=== PATIENT | female | born 1955 | race Caucasian/White ===

== ENCOUNTER → 2016-05-23 | Outpatient (CLI) | payer BC ==
[~2016-05-23] MED LIST: ACARBOSE PO; ASPI81TA45 OR; CALCCHW12 OR; CLAR5CHW OR; ENAL2.5T OR; FENOFIBRATE PO; GLUC1000 OR; HYDR25TA6 OR; SIMV20TA2 OR; SIMVPOW2 PO; SYNT150T OR; VICTOZA INJECTION; VITA-113 PO
[2016-05-23 11:29] LABS: EOS # 0.3 K/mm3 (0.0-0.50); EOS % 6.3 % (0.0-3.0); LARGE UNSTAINED CELL # 0.1 K/mm3 (0.0-0.4); LARGE UNSTAINED CELL % 1.8 % (0.0-4.0); LYMPH # 1.2 K/mm3 (1.5-4.5); LYMPH % 22.9 % (24.0-44.0); MEAN CORPUSCULAR HEMOGLOBIN 29.3 pg (27.0-33.0); MEAN CORPUSCULAR HGB CONC 31.2 g/dl (32.0-36.5); MEAN CORPUSCULAR VOLUME 94.1 fl (80.0-96.0); MONO # 0.3 K/mm3 (0.0-0.8); MONO % 5.6 % (0.0-5.0); NEUTROPHILS # 3.3 K/mm3 (1.8-7.7); NEUTROPHILS % 62.4 % (36.0-66.0); PLATELET COUNT, AUTOMATED 328 k/mm3 (150-450); RED CELL DISTRIBUTION WIDTH 13.4 % (11.5-14.5); WHITE BLOOD COUNT 5.2 K/mm3 (4.0-10.0)
[2016-05-23 11:55] LABS: ALBUMIN 3.6 GM/DL (3.2-5.2); ALBUMIN/GLOBULIN RATIO 0.95 (1.00-1.93); BILIRUBIN,TOTAL 0.2 MG/DL (0.2-1.0); CALCIUM LEVEL 8.6 MG/DL (8.8-10.2); CREATININE FOR GFR 2.03 MG/DL (0.55-1.02); FREE T4 1.24 NG/DL (0.76-1.46); GLOMERULAR FILTRATION RATE 26.5 (>45); POTASSIUM SERUM 4.2 MEQ/L (3.5-5.1); TOTAL PROTEIN 7.4 GM/DL (6.4-8.2)
== END ==
LOC: M WUC 09:35
PROVIDERS: ATTEND Family Medicine
DX: E03.9 Hypothyroidism, unspecified (principal); I10 Essential (primary) hypertension; E55.9 Vitamin D deficiency, unspecified; E11.9 Type 2 diabetes mellitus without complications

== ENCOUNTER → 2016-11-22 | Outpatient (CLI) | payer BC ==
[2016-11-22 18:12] LABS: ALBUMIN 3.9 GM/DL (3.2-5.2); ANION GAP 8 MEQ/L (8-16); BLOOD UREA NITROGEN 51 MG/DL (7-18); CALCIUM LEVEL 8.3 MG/DL (8.8-10.2); CARBON DIOXIDE LEVEL 23 MEQ/L (21-32); CHLORIDE LEVEL 114 MEQ/L (98-107); CHOLESTEROL LEVEL 149 MG/DL (<200); CREATININE FOR GFR 2.48 MG/DL (0.55-1.02); FERRITIN 74 NG/ML (8-252); FREE T4 1.34 NG/DL (0.76-1.46); GLUCOSE, FASTING 156 MG/DL (80-110); MAGNESIUM LEVEL 1.5 MG/DL (1.8-2.4); PERCENT SATURATION 21.1 % (13.2-45.0); PHOSPHORUS LEVEL 4.1 MG/DL (2.5-4.9); POTASSIUM SERUM 4.4 MEQ/L (3.5-5.1); SODIUM LEVEL 145 MEQ/L (136-145); TOTAL IRON BINDING CAPACITY 460 UG/DL (250-450); TRIGLYCERIDES LEVEL 294 MG/DL (<150)
== END ==
LOC: M WUC 08:18
PROVIDERS: ATTEND Family Medicine
DX: E78.5 Hyperlipidemia, unspecified (principal); E53.8 Deficiency of other specified B group vitamins; E11.8 Type 2 diabetes mellitus with unspecified complications; E55.9 Vitamin D deficiency, unspecified; N18.3 Chronic kidney disease, stage 3 (moderate)

== ENCOUNTER → 2017-03-02 | Outpatient (CLI) | payer BC ==
[2017-03-02 19:20] LABS: BASO % 0.8 % (0.0-1.0); EOS # 0.3 10^3/uL (0.0-0.50); EOS % 5.7 % (0.0-3.0); IMMATURE GRANULOCYTE % 0.6 % (0-0); LYMPH # 1.6 10^3/uL (1.5-4.5); LYMPH % 33.1 % (24.0-44.0); MEAN CORPUSCULAR HEMOGLOBIN 30.2 pg (27.0-33.0); MEAN CORPUSCULAR HGB CONC 31.5 g/dl (32.0-36.5); MEAN CORPUSCULAR VOLUME 95.8 fl (80.0-96.0); MONO # 0.3 10^3/uL (0.0-0.8); MONO % 6.5 % (0.0-5.0); NEUTROPHILS # 2.5 10^3/uL (1.8-7.7); NEUTROPHILS % 53.3 % (36.0-66.0); PLATELET COUNT, AUTOMATED 290 10^3/uL (150-450); RED CELL DISTRIBUTION WIDTH 13.2 % (11.5-14.5); WHITE BLOOD COUNT 4.8 10^3/uL (4.0-10.0)
[2017-03-02 20:33] LABS: ALBUMIN 3.6 GM/DL (3.2-5.2); BILIRUBIN,TOTAL 0.1 MG/DL (0.2-1.0); CALCIUM LEVEL 8.8 MG/DL (8.8-10.2); CREATININE FOR GFR 2.24 MG/DL (0.55-1.02); GLOMERULAR FILTRATION RATE 23.6 (>45); MAGNESIUM LEVEL 1.5 MG/DL (1.8-2.4); POTASSIUM SERUM 3.9 MEQ/L (3.5-5.1); TOTAL PROTEIN 7.2 GM/DL (6.4-8.2)
== END ==
LOC: M WUC 14:30
PROVIDERS: ATTEND Family Medicine
DX: N18.3 Chronic kidney disease, stage 3 (moderate) (principal); E11.8 Type 2 diabetes mellitus with unspecified complications

== ENCOUNTER → 2017-06-13 | Outpatient (CLI) | payer BC ==
[2017-06-13 17:53] LABS: BASO % 0.7 % (0.0-1.0); EOS # 0.3 10^3/uL (0.0-0.50); EOS % 5.6 % (0.0-3.0); HEMATOCRIT 38.3 % (36.0-47.0); IMMATURE GRANULOCYTE % 0.5 % (0-3.0); LYMPH # 1.5 10^3/uL (1.5-4.5); MEAN CORPUSCULAR HEMOGLOBIN 30.2 pg (27.0-33.0); MEAN CORPUSCULAR HGB CONC 31.3 g/dl (32.0-36.5); MEAN CORPUSCULAR VOLUME 96.2 fl (80.0-96.0); MONO # 0.4 10^3/uL (0.0-0.8); MONO % 7.1 % (0.0-5.0); NEUTROPHILS # 3.5 10^3/uL (1.8-7.7); NEUTROPHILS % 60.1 % (36.0-66.0); PLATELET COUNT, AUTOMATED 296 10^3/uL (150-450); RED BLOOD COUNT 3.98 10^6/uL (4.00-5.40); RED CELL DISTRIBUTION WIDTH 13.4 % (11.5-14.5); WHITE BLOOD COUNT 5.9 10^3/uL (4.0-10.0)
[2017-06-13 17:59] LABS: HEMATOCRIT 38.3 % (36.0-47.0)
[2017-06-13 18:16] LABS: ESTIMATED AVERAGE GLUCOSE 217 MG/DL (60-110); HEMOGLOBIN A1c 9.2 %
[2017-06-13 18:22] LABS: ALBUMIN 3.7 GM/DL (3.2-5.2); ALBUMIN/GLOBULIN RATIO 1.03 (1.00-1.93); ALKALINE PHOSPHATASE 71 U/L (45-117); ALT/SGPT 26 U/L (12-78); ANION GAP 7 MEQ/L (8-16); AST/SGOT 29 U/L (7-37); BILIRUBIN,TOTAL 0.2 MG/DL (0.2-1.0); BLOOD UREA NITROGEN 37 MG/DL (7-18); CALCIUM LEVEL 8.9 MG/DL (8.8-10.2); CARBON DIOXIDE LEVEL 27 MEQ/L (21-32); CHLORIDE LEVEL 109 MEQ/L (98-107); CHOLESTEROL LEVEL 157 MG/DL (<200); CHOLESTEROL RISK RATIO 8.263 (<5); CPK CREATINE PHOSPHOKINASE 178 U/L (26-192); CREATININE FOR GFR 2.21 MG/DL (0.55-1.30); GLUCOSE, FASTING 157 MG/DL (70-100); HDL CHOLESTEROL 19 MG/DL (>40); NON-HDL-C 138 MG/DL; POTASSIUM SERUM 4.5 MEQ/L (3.5-5.1); SODIUM LEVEL 143 MEQ/L (136-145); TOTAL PROTEIN 7.3 GM/DL (6.4-8.2); TRIGLYCERIDES LEVEL 295 MG/DL (<150)
[2017-06-14 12:09] LABS: PTH INTACT 105.5 PG/ML (18.5-88.0)
[2017-06-14 12:11] LABS: VITAMIN B12 LEVEL 1071 PG/ML (247-911)
[2017-06-15 11:26] LABS: PRETREATED FOLATE FOR RBCFOL 11.1 NG/ML; RBC FOLATE 608.6 NG/ML (280-791)
== END ==
LOC: M WUC 09:14
DX: E53.8 Deficiency of other specified B group vitamins (principal); E78.5 Hyperlipidemia, unspecified; E03.9 Hypothyroidism, unspecified; E11.8 Type 2 diabetes mellitus with unspecified complications; E55.9 Vitamin D deficiency, unspecified
CPT/HCPCS: 82550

== ENCOUNTER → 2017-08-03 | Outpatient (CLI) | payer BC | LOC: M WHC 08:46 | DX: Z12.31 Encounter for screening mammogram for malignant neoplasm of breast (principal); M85.89 Other specified disorders of bone density and structure, multiple sites; Z78.0 Asymptomatic menopausal state | CPT/HCPCS: 77067 ==

== ENCOUNTER → 2017-10-30 | Outpatient (CLI) | payer BC ==
[2017-10-30 13:00] LABS: RETIC HEMOGLOBIN EQUIVALENT 34.7 pg (24-36); RETICULOCYTE # 77.8 10^9/L (17-77)
[2017-10-30 13:15] LABS: ESTIMATED AVERAGE GLUCOSE 194 MG/DL (60-110); HEMOGLOBIN A1c 8.4 %
[2017-10-30 13:19] LABS: ALBUMIN 3.5 GM/DL (3.2-5.2); ALBUMIN/GLOBULIN RATIO 0.95 (1.00-1.93); ALKALINE PHOSPHATASE 49 U/L (45-117); ALT/SGPT 37 U/L (12-78); ANION GAP 7 MEQ/L (8-16); AST/SGOT 43 U/L (7-37); BILIRUBIN,TOTAL 0.3 MG/DL (0.2-1.0); BLOOD UREA NITROGEN 41 MG/DL (7-18); C REACTIVE PROTEIN QUANTITATIV < 0.30 MG/DL (0.00-0.30); CALCIUM LEVEL 8.5 MG/DL (8.8-10.2); CARBON DIOXIDE LEVEL 27 MEQ/L (21-32); CHLORIDE LEVEL 111 MEQ/L (98-107); CPK CREATINE PHOSPHOKINASE 169 U/L (26-192); CREATININE FOR GFR 2.19 MG/DL (0.55-1.30); FREE T4 1.02 NG/DL (0.76-1.46); GLOMERULAR FILTRATION RATE 24.2 (>45); GLUCOSE, FASTING 129 MG/DL (70-100); PHOSPHORUS LEVEL 4.5 MG/DL (2.5-4.9); POTASSIUM SERUM 4.4 MEQ/L (3.5-5.1); SODIUM LEVEL 145 MEQ/L (136-145); TOTAL PROTEIN 7.2 GM/DL (6.4-8.2)
[2017-11-01 10:27] LABS: PTH INTACT 106.7 PG/ML (18.5-88.0)
== END ==
LOC: M WUC 09:01
DX: N11.8 Other chronic tubulo-interstitial nephritis (principal); N18.3 Chronic kidney disease, stage 3 (moderate); E03.9 Hypothyroidism, unspecified
CPT/HCPCS: 82550

== ENCOUNTER 2017-12-09 03:37 | Inpatient (IN) | payer BC ==
[2017-12-09 03:57] LABS: BEDSIDE GLUCOSE 290 MG/DL (80-115)
[2017-12-09] MEDS ORDERED: VANCOMYCIN HCL 1,000 MG, VIAL MATE ADAPTER 1 EACH in D5W 250 ML IV (04:15)
[2017-12-09] MEDS ORDERED: PIPERACILLIN/TAZOBACTAM SOD 3.375 GM in D5W MINI-BAG PLUS 50 ML IV ×2 (04:15→20:00)
[2017-12-09] MEDS: MORPHINE 2 MG/ML 1ML SYRINGE (J2270) IV (04:21)
[2017-12-09] MEDS: ONDANSETRON 4MG/2ML VIAL (J2405) IV (04:21)
[2017-12-09] MEDS: NS 1,000 ML IV ×2 (04:22→15:10)
[2017-12-09 04:23] LABS: BASO % 0.3 % (0.0-1.0); EOS % 0.1 % (0.0-3.0); HEMOGLOBIN 16.4 g/dl (12.0-15.5); IMMATURE GRANULOCYTE % 0.4 % (0-3.0); LYMPH # 1.9 10^3/uL (1.5-4.5); LYMPH % 12.4 % (24.0-44.0); MEAN CORPUSCULAR HEMOGLOBIN 30.7 pg (27.0-33.0); MEAN CORPUSCULAR HGB CONC 30.9 g/dl (32.0-36.5); MEAN CORPUSCULAR VOLUME 99.3 fl (80.0-96.0); MONO # 0.9 10^3/uL (0.0-0.8); MONO % 5.9 % (0.0-5.0); NEUTROPHILS # 12.6 10^3/uL (1.8-7.7); NEUTROPHILS % 80.9 % (36.0-66.0); PLATELET COUNT, AUTOMATED 579 10^3/uL (150-450); RED BLOOD COUNT 5.34 10^6/uL (4.00-5.40); RED CELL DISTRIBUTION WIDTH 13.6 % (11.5-14.5); WHITE BLOOD COUNT 15.6 10^3/uL (4.0-10.0)
[2017-12-09 04:27] LABS: INR 1.05; PROTHROMBIN TIME 13.8 SECONDS (12.1-14.4)
[2017-12-09 04:42] LABS: ALBUMIN 4.5 GM/DL (3.2-5.2); ALBUMIN/GLOBULIN RATIO 0.85 (1.00-1.93); ALKALINE PHOSPHATASE 75 U/L (45-117); ALT/SGPT 38 U/L (12-78); ANION GAP 23 MEQ/L (8-16); AST/SGOT 46 U/L (7-37); BILIRUBIN,DIRECT 0.2 MG/DL (0.0-0.2); BILIRUBIN,TOTAL 0.5 MG/DL (0.2-1.0); BLOOD UREA NITROGEN 46 MG/DL (7-18); CALCIUM LEVEL 10.2 MG/DL (8.8-10.2); CARBON DIOXIDE LEVEL 17 MEQ/L (21-32); CHLORIDE LEVEL 100 MEQ/L (98-107); CPK CREATINE PHOSPHOKINASE 413 U/L (26-192); CREATININE FOR GFR 5.11 MG/DL (0.55-1.30); GLOMERULAR FILTRATION RATE 9.1 (>45); GLUCOSE, FASTING 275 MG/DL (70-100); LIPASE 292 U/L (73-393); POTASSIUM SERUM 4.3 MEQ/L (3.5-5.1); SODIUM LEVEL 140 MEQ/L (136-145); TOTAL PROTEIN 9.8 GM/DL (6.4-8.2); TROPONIN I 0.33 NG/ML (< 0.10)
[2017-12-09 04:43] LABS: CK-MB VALUE MASS 13.3 NG/ML (<3.6); MB/CK RELATIVE INDEX 3.22 (< OR =4)
[2017-12-09 05:19] LABS: LACTIC ACID SEPSIS PROTOCOL 7.5 MMOL/L (0.4-2.0)
[2017-12-09 05:22] LABS: OSMOLALITY SERUM 323 MOSM/KG (280-301)
[2017-12-09 05:28] LABS: ABG BASE EXCESS -16.1 (-2.0-2.0); ABG O2 SATURATION 98.3 % (95.0-99.0); ABG PARTIAL PRESSURE CO2 25.9 mmHg (35.0-45.0); ABG PARTIAL PRESSURE O2 141.4 mmHg (75.0-100.0); ABG STANDARD HCO3 12.7 MEQ/L (22.0-26.0); ABG TOTAL CO2 10.8 MEQ/L (23.0-31.0)
[2017-12-09 05:29] LABS: ABG pH (ARTERIAL) 7.206 UNITS (7.350-7.450)
[2017-12-09] MEDS: NS 2,730 ML in APPROPRIATE DILUENT 1 EA IV (05:30)
[2017-12-09] MEDS: PIPERACILLIN/TAZOBACTAM SOD 3.375 GM in D5W MINI-BAG PLUS 50 ML IV ×2 (05:45→15:00)
[2017-12-09] MEDS: NOREPINEPHRINE BITARTRATE 8 MG in D5W 492 ML IV ×3 (06:00→19:37)
[2017-12-09 07:09] LABS: KETONE, URINE AUTO RFX NEGATIVE (NEGATIVE); LEUKOCYTE ESTERASE UR AUTO RFX 1+ (NEGATIVE); MUCUS, URINE RFX SMALL (NEGATIVE); NITRITE, URINE AUTO RFX NEGATIVE (NEGATIVE); RBC, URINE AUTO RFX TNTC /HPF (0-3); SPECIFIC GRAVITY UR AUTO RFX 1.013 (1.002-1.035); SQUAM EPITHELIAL CELL UR AURFX 0 /HPF (0-6); WBC, URINE AUTO RFX 17 /HPF (0-3); YEAST LIKE CELL URINE AUTO RFX SMALL
[2017-12-09 07:30] LABS: LACTIC ACID SEPSIS PROTOCOL 4.3 MMOL/L (0.4-2.0)
[2017-12-09] MEDS ORDERED: AMIODARONE HCL 150 MG/100 ML PREMIXED BAG (NEXTERONE) As Ordered (08:51)
[2017-12-09] MEDS: CONRAY-60 60% 50ML VIAL (Q9961) As Ordered (09:01)
[2017-12-09 09:34] LABS: AMORPHOUS SEDIMENT SMALL (NEGATIVE); APPEARANCE, URINE CLOUDY (CLEAR); BACTERIA, URINE AUTO 1+ (NEGATIVE); BILIRUBIN, URINE AUTO NEGATIVE (NEGATIVE); BLOOD, URINE BLOOD 3+ (NEGATIVE); COLOR, URINE YELLOW (YELLOW); GLUCOSE, URINE (UA) AUTO 2+ mg/dL (NEGATIVE); KETONE, URINE AUTO NEGATIVE (NEGATIVE); LEUKOCYTE ESTERASE, URINE AUTO 1+ (NEGATIVE); MUCUS, URINE SMALL (NEGATIVE); NITRITE, URINE AUTO NEGATIVE (NEGATIVE); PROTEIN, URINE AUTO 3+ mg/dL (NEGATIVE); RBC, URINE AUTO TNTC /HPF (0-3); RENAL EPITHELIAL CELLS 2 /HPF; SPECIFIC GRAVITY URINE AUTO 1.012 (1.002-1.035); SQUAMOUS EPITHELIAL CELL UR AU 5 /HPF (0-6); TRANSITIONAL EPITHELIAL AUTO 1 /HPF; UROBILINOGEN, URINE AUTO 0.2 mg/dL (0.0-2.0); WBC, URINE AUTO 116 /HPF (0-3)
[2017-12-09] MEDS ORDERED: fentaNYL 250 MCG/5 ML INJECTION (J3010) As Ordered (10:06)
[2017-12-09] MEDS ORDERED: PROPOFOL 200 MG/20 ML VIAL As Ordered (10:06)
[2017-12-09] MEDS ORDERED: ROCURONIUM BROMIDE 50 MG/5 ML VIAL As Ordered ×3 (10:06→11:09)
[2017-12-09] MEDS ORDERED: SUCCINYLCHOLINE 100 MG/5 ML SYRINGE (J0330) As Ordered (10:06)
[2017-12-09] MEDS ORDERED: EPINEPHrine 1MG/10ML SYRINGE 1.5IN As Ordered (10:06)
[2017-12-09] MEDS ORDERED: SODIUM BICARBONATE 8.4% INJ 50 ML SYRINGE As Ordered (10:06)
[2017-12-09] MEDS ORDERED: AMIODARONE HCL 360 MG/200 ML PREMIXED BAG (NEXTERONE) As Ordered (10:06)
[2017-12-09] MEDS ORDERED: LIDOCAINE 2% INJ 100 MG/5 ML SDV (FOR ANES.) As Ordered (10:06)
[2017-12-09] MEDS ORDERED: ETOMIDATE INJ 20MG/10ML VIAL As Ordered (10:06)
[2017-12-09] MEDS ORDERED: MIDAZOLAM INJ 2 MG/2 ML VIAL (J2250) As Ordered ×2 (10:06→11:45)
[2017-12-09] MEDS ORDERED: ONDANSETRON 4MG/2ML VIAL (J2405) As Ordered (10:06)
[2017-12-09] MEDS ORDERED: VASOPRESSIN INJ 20 UNITS/ML VIAL As Ordered ×2 (10:06→14:41)
[2017-12-09] MEDS ORDERED: CALCIUM CHLORIDE 10% 1 GM/10 ML SYR As Ordered (10:36)
[2017-12-09] MEDS ORDERED: PROPOFOL 1,000 MG/100 ML VIAL As Ordered (11:37)
[2017-12-09 12:11] LABS: BEDSIDE GLUCOSE 157 MG/DL (80-115)
[2017-12-09] MEDS ORDERED: fentaNYL 100 MCG/2 ML INJECTION (J3010) IV (12:15)
[2017-12-09] MEDS ORDERED: METOCLOPRAMIDE INJ 10MG/2ML VIAL (J2765) IV (12:15)
[2017-12-09] MEDS ORDERED: ONDANSETRON 4MG/2ML VIAL (J2405) IV ×2 (12:15→12:45)
[2017-12-09 12:33] LABS: ABG BASE EXCESS -15.1 (-2.0-2.0); ABG HCO3 13.2 MEQ/L (22.0-26.0); ABG O2 SATURATION 95.6 % (95.0-99.0); ABG PARTIAL PRESSURE CO2 39.7 mmHg (35.0-45.0); ABG TOTAL CO2 14.4 MEQ/L (23.0-31.0)
[2017-12-09 12:39] LABS: ABG pH (ARTERIAL) 7.139 UNITS (7.350-7.450)
[2017-12-09] MEDS ORDERED: NORCO, ANEXSIA 5/325MG TABLET (HYDROcodone/ACETAMINOPHEN) PO (12:45)
[2017-12-09] MEDS ORDERED: GLUCOSE 4 GM CHEW TABLET PO (12:45)
[2017-12-09] MEDS ORDERED: GLUCAGON FOR INJ 1 MG VIAL (J1610) SC (12:45)
[2017-12-09] MEDS: LR 1,000 ML IV ×5 (13:33→21:25)
[2017-12-09 14:12] LABS: HEMATOCRIT 39.8 % (36.0-47.0); MEAN CORPUSCULAR HEMOGLOBIN 31.7 pg (27.0-33.0); MEAN CORPUSCULAR HGB CONC 31.9 g/dl (32.0-36.5); MEAN CORPUSCULAR VOLUME 99.3 fl (80.0-96.0); RED BLOOD COUNT 4.01 10^6/uL (4.00-5.40); WHITE BLOOD COUNT 5.4 10^3/uL (4.0-10.0)
[2017-12-09 14:13] LABS: ABG BASE EXCESS -14.9 (-2.0-2.0); ABG HCO3 13.5 MEQ/L (22.0-26.0); ABG O2 SATURATION 94.7 % (95.0-99.0); ABG PARTIAL PRESSURE CO2 40.7 mmHg (35.0-45.0); ABG PARTIAL PRESSURE O2 88.8 mmHg (75.0-100.0); ABG STANDARD HCO3 13.2 MEQ/L (22.0-26.0); ABG TOTAL CO2 14.8 MEQ/L (23.0-31.0)
[2017-12-09 14:15] LABS: ABG pH (ARTERIAL) 7.139 UNITS (7.350-7.450)
[2017-12-09 14:21] LABS: POSITIVE MORPH POS FLAG
[2017-12-09 14:22] LABS: ADD MANUAL DIFFER YES; DIFF SLIDE NUMBER 242; HEMOGLOBIN 12.7 g/dl (12.0-15.5); PLATELET COUNT, AUTOMATED 359 10^3/uL (150-450)
[2017-12-09] MEDS: VASOPRESSIN INJ 20 UNITS in NS 499 ML IV ×3 (14:25→22:29)
[2017-12-09 14:41] LABS: ALBUMIN 2.3 GM/DL (3.2-5.2); ALBUMIN/GLOBULIN RATIO 0.66 (1.00-1.93); ALKALINE PHOSPHATASE 42 U/L (45-117); ALT/SGPT 70 U/L (12-78); ANION GAP 14 MEQ/L (8-16); AST/SGOT 191 U/L (7-37); BILIRUBIN,TOTAL 0.3 MG/DL (0.2-1.0); BLOOD UREA NITROGEN 49 MG/DL (7-18); CALCIUM LEVEL 6.8 MG/DL (8.8-10.2); CARBON DIOXIDE LEVEL 17 MEQ/L (21-32); CHLORIDE LEVEL 116 MEQ/L (98-107); CHOLESTEROL LEVEL 76 MG/DL (< 200); CPK CREATINE PHOSPHOKINASE 1907 U/L (26-192); CREATININE FOR GFR 4.74 MG/DL (0.55-1.30); GLOMERULAR FILTRATION RATE 9.9 (>45); GLUCOSE, FASTING 119 MG/DL (70-100); LDH LACTATE DEHYDROGENASE 436 U/L (84-246); PHOSPHORUS LEVEL 5.5 MG/DL (2.5-4.9); POTASSIUM SERUM 4.7 MEQ/L (3.5-5.1); SODIUM LEVEL 147 MEQ/L (136-145); TOTAL PROTEIN 5.8 GM/DL (6.4-8.2); TRIGLYCERIDES LEVEL 122 MG/DL (<150)
[2017-12-09 14:47] LABS: CPK CREATINE PHOSPHOKINASE 1898 U/L (26-192); MB/CK RELATIVE INDEX 6.05 (< OR =4)
[2017-12-09 14:55] LABS: ATYPICAL LYMPH 14 % (0-5); BANDS 25 % (< 11); BASOPHILS 1 % (0-4); LYMPHOCYTES 11 % (16-52); METAMYELOCYTES 3 % (0-0); MONOCYTES 4 % (0-8); NEUTROPHILS 42 % (35-75)
[2017-12-09 14:57] LABS: PLATELET ESTIMATE INCREASED (NORMAL); TOXIC VACUOLATION 1+
[2017-12-09] MEDS: AMIODARONE HCL 360 MG in APPROPRIATE DILUENT 1 EA IV ×3 (15:00→16:13)
[2017-12-09] MEDS: MIDAZOLAM INJ 2 MG/2 ML VIAL (J2250) IV ×3 (15:02→20:12)
[2017-12-09] MEDS: SENOKOT S TAB PO ×2 (15:05→20:50)
[2017-12-09] MEDS: LEVOTHYROXINE 150MCG TABLET (0.15MG) PO ×2 (15:05→22:35)
[2017-12-09] MEDS: HEPARIN SOD (PORCINE) 5000 UNITS/ML VIAL SC ×2 (15:05→21:24)
[2017-12-09] MEDS: amLODIPine 5 MG TAB PO (15:05)
[2017-12-09] MEDS: ENALAPRIL MALEATE 5 MG TAB PO (15:06)
[2017-12-09] MEDS: PANTOPRAZOLE 40MG INJ (PROTONIX) (C9113) IV (15:16)
[2017-12-09] MEDS: SODIUM BICARBONATE 8.4% INJ 50 ML SYRINGE IV (16:05)
[2017-12-09] MEDS: ASPIRIN 81 MG ENTERIC TAB PO (16:13)
[2017-12-09 17:07] LABS: ABG BASE EXCESS -11.6 (-2.0-2.0); ABG HCO3 16.2 MEQ/L (22.0-26.0); ABG O2 SATURATION 93.1 % (95.0-99.0); ABG PARTIAL PRESSURE CO2 43.8 mmHg (35.0-45.0); ABG STANDARD HCO3 15.4 MEQ/L (22.0-26.0); ABG TOTAL CO2 17.6 MEQ/L (23.0-31.0)
[2017-12-09 17:09] LABS: ABG pH (ARTERIAL) 7.187 UNITS (7.350-7.450)
[2017-12-09] MEDS: PIPERACILLIN/TAZOBACTAM SOD 2.25 GM in D5W MINI-BAG PLUS 50 ML IV ×2 (17:14→23:23)
[2017-12-09 17:23] LABS: BEDSIDE GLUCOSE 99 MG/DL (80-115)
[2017-12-09] MEDS: HumaLOG INSULIN (NovoLOG) PER UNIT SC (17:26)
[2017-12-09] MEDS ORDERED: HEPARIN 1,000 UNITS/ML 10ML VIAL (FOR RADIOLOGY& DIALYSIS ONLY) IV (18:00)
[2017-12-09] MEDS ORDERED: SODIUM CHLORIDE 0.9% INJ 10 ML SYR IV (18:00)
[2017-12-09] MEDS: SODIUM BICARBONATE 150 MEQ in STERILE WATER LITER BAG 1,000 ML IV (18:08)
[2017-12-09] MEDS: MORPHINE 4 MG/ML 1ML VIAL/SYRINGE (J2270) IV (18:22)
[2017-12-09 19:36] LABS: HEMATOCRIT 38.6 % (36.0-47.0); HEMOGLOBIN 12.1 g/dl (12.0-15.5); MEAN CORPUSCULAR HEMOGLOBIN 30.6 pg (27.0-33.0); MEAN CORPUSCULAR HGB CONC 31.3 g/dl (32.0-36.5); MEAN CORPUSCULAR VOLUME 97.7 fl (80.0-96.0); PLATELET COUNT, AUTOMATED 355 10^3/uL (150-450); RED BLOOD COUNT 3.95 10^6/uL (4.00-5.40); RED CELL DISTRIBUTION WIDTH 14.2 % (11.5-14.5)
[2017-12-09 19:37] LABS: IONIZED CALCIUM 3.6 MG/DL (4.5-5.3)
[2017-12-09 19:53] LABS: ANION GAP 13 MEQ/L (8-16); BLOOD UREA NITROGEN 51 MG/DL (7-18); CALCIUM LEVEL 6.2 MG/DL (8.8-10.2); CARBON DIOXIDE LEVEL 18 MEQ/L (21-32); CHLORIDE LEVEL 115 MEQ/L (98-107); CREATININE FOR GFR 5.25 MG/DL (0.55-1.30); GLOMERULAR FILTRATION RATE 8.8 (>45); GLUCOSE, FASTING 99 MG/DL (70-100); MAGNESIUM LEVEL 1.3 MG/DL (1.8-2.4); POTASSIUM SERUM 4.6 MEQ/L (3.5-5.1); SODIUM LEVEL 146 MEQ/L (136-145)
[2017-12-09 19:53] LABS: BEDSIDE GLUCOSE 87 MG/DL (80-115)
[2017-12-09 19:56] LABS: PROTHROMBIN TIME 16.4 SECONDS (12.1-14.4)
[2017-12-09 19:57] LABS: PARTIAL THROMBOPLASTIN TIME 32.2 SECONDS (25.4-37.6)
[2017-12-09 20:17] LABS: PHOSPHORUS LEVEL 4.2 MG/DL (2.5-4.9)
[2017-12-09] MEDS: ASPIRIN 325 MG TAB NG (20:36)
[2017-12-09] MEDS: MAG SULF 1GM/100ML (MAG RUN) 1 GM in APPROPRIATE DILUENT 1 EA IV ×2 (20:37→21:27)
[2017-12-09] MEDS: ATORVASTATIN 20 MG TAB PO (20:50)
[2017-12-09 22:30] LABS: ABG BASE EXCESS -10.7 (-2.0-2.0); ABG HCO3 15.3 MEQ/L (22.0-26.0); ABG O2 SATURATION 95.5 % (95.0-99.0); ABG PARTIAL PRESSURE CO2 34.3 mmHg (35.0-45.0); ABG PARTIAL PRESSURE O2 83.3 mmHg (75.0-100.0); ABG TOTAL CO2 16.3 MEQ/L (23.0-31.0)
[2017-12-09 22:31] LABS: ABG pH (ARTERIAL) 7.267 UNITS (7.350-7.450)
[2017-12-10] MEDS: NOREPINEPHRINE BITARTRATE 8 MG in D5W 492 ML IV ×3 (00:08→08:45)
[2017-12-10 01:11] LABS: BEDSIDE GLUCOSE 71 MG/DL (80-115)
[2017-12-10 01:14] LABS: BEDSIDE GLUCOSE 79 MG/DL (80-115)
[2017-12-10] MEDS: AMIODARONE HCL 360 MG in APPROPRIATE DILUENT 1 EA IV (02:13)
[2017-12-10] MEDS: EPINEPHrine HCL INJ 1 MG in D5W 240 ML IV ×3 (03:44→07:07)
[2017-12-10 03:59] LABS: ABG BASE EXCESS -15.3 (-2.0-2.0); ABG O2 SATURATION 92.3 % (95.0-99.0); ABG PARTIAL PRESSURE CO2 39.5 mmHg (35.0-45.0); ABG PARTIAL PRESSURE O2 73.4 mmHg (75.0-100.0); ABG STANDARD HCO3 12.7 MEQ/L (22.0-26.0); ABG TOTAL CO2 14.2 MEQ/L (23.0-31.0)
[2017-12-10 04:02] LABS: IONIZED CALCIUM 3.6 MG/DL (4.5-5.3)
[2017-12-10 04:04] LABS: ABG pH (ARTERIAL) 7.134 UNITS (7.350-7.450)
[2017-12-10 04:08] LABS: HEMATOCRIT 35.5 % (36.0-47.0); HEMOGLOBIN 10.8 g/dl (12.0-15.5); MEAN CORPUSCULAR HEMOGLOBIN 30.8 pg (27.0-33.0); MEAN CORPUSCULAR HGB CONC 30.4 g/dl (32.0-36.5); MEAN CORPUSCULAR VOLUME 101.1 fl (80.0-96.0); POSITIVE MORPH POS FLAG; RED BLOOD COUNT 3.51 10^6/uL (4.00-5.40); RED CELL DISTRIBUTION WIDTH 14.6 % (11.5-14.5); WHITE BLOOD COUNT 8.4 10^3/uL (4.0-10.0)
[2017-12-10 04:09] LABS: ADD MANUAL DIFFER YES; DIFF SLIDE NUMBER 63; PLATELET COUNT, AUTOMATED 241 10^3/uL (150-450)
[2017-12-10 04:26] LABS: BANDS 12 % (< 11); LYMPHOCYTES 24 % (16-52); METAMYELOCYTES 10 % (0-0); MONOCYTES 4 % (0-8); MYELOCYTES 1 % (0-0); NEUTROPHILS 49 % (35-75)
[2017-12-10 04:27] LABS: ALBUMIN 1.9 GM/DL (3.2-5.2); ALBUMIN/GLOBULIN RATIO 0.59 (1.00-1.93); ALKALINE PHOSPHATASE 34 U/L (45-117); ALT/SGPT 127 U/L (12-78); ANION GAP 14 MEQ/L (8-16); AST/SGOT 369 U/L (7-37); BILIRUBIN,TOTAL 0.4 MG/DL (0.2-1.0); BLOOD UREA NITROGEN 41 MG/DL (7-18); CALCIUM LEVEL 6.2 MG/DL (8.8-10.2); CARBON DIOXIDE LEVEL 16 MEQ/L (21-32); CHLORIDE LEVEL 112 MEQ/L (98-107); CHOLESTEROL LEVEL < 50 MG/DL (< 200); CREATININE FOR GFR 4.66 MG/DL (0.55-1.30); GLOMERULAR FILTRATION RATE 10.1 (>45); GLUCOSE, FASTING 69 MG/DL (70-100); LDH LACTATE DEHYDROGENASE 536 U/L (84-246); MAGNESIUM LEVEL 2.1 MG/DL (1.8-2.4); PHOSPHORUS LEVEL 5.5 MG/DL (2.5-4.9); SODIUM LEVEL 142 MEQ/L (136-145); TOTAL PROTEIN 5.1 GM/DL (6.4-8.2); TRIGLYCERIDES LEVEL 63 MG/DL (<150)
[2017-12-10 04:28] LABS: PLATELET ESTIMATE NORMAL (NORMAL)
[2017-12-10 04:29] LABS: BURR CELLS 2+
[2017-12-10 04:30] LABS: TOXIC VACUOLATION 1+
[2017-12-10 04:41] LABS: POTASSIUM SERUM 6.1 MEQ/L (3.5-5.1)
[2017-12-10 04:44] LABS: CPK CREATINE PHOSPHOKINASE 3844 U/L (26-192)
[2017-12-10] MEDS: LR 1,000 ML IV (05:12)
[2017-12-10] MEDS: HumaLOG INSULIN (NovoLOG) PER UNIT SC ×5 (05:24→23:25)
[2017-12-10] MEDS: HEPARIN SOD (PORCINE) 5000 UNITS/ML VIAL SC ×3 (05:24→21:11)
[2017-12-10] MEDS: CALCIUM GLUCONATE 1,000 MG in NS 100 ML IV ×4 (05:24→19:48)
[2017-12-10] MEDS: MIDAZOLAM INJ 2 MG/2 ML VIAL (J2250) IV (05:56)
[2017-12-10] MEDS: VASOPRESSIN INJ 20 UNITS in NS 499 ML IV (06:06)
[2017-12-10] MEDS: PIPERACILLIN/TAZOBACTAM SOD 2.25 GM in D5W MINI-BAG PLUS 50 ML IV ×3 (08:19→22:32)
[2017-12-10] MEDS: EPINEPHrine HCL INJ 4 MG in D5W 960 ML IV ×2 (08:44→20:00)
[2017-12-10] MEDS: ASPIRIN 325 MG TAB NG (08:50)
[2017-12-10] MEDS: PANTOPRAZOLE 40MG INJ (PROTONIX) (C9113) IV (08:51)
[2017-12-10] MEDS: SENOKOT S TAB PO ×2 (08:51→20:31)
[2017-12-10] MEDS ORDERED: TORSEMIDE 10 MG TABLET PO (09:00)
[2017-12-10 10:19] LABS: BEDSIDE GLUCOSE 91 MG/DL (80-115)
[2017-12-10 11:33] LABS: ABG BASE EXCESS -16.8 (-2.0-2.0); ABG HCO3 10.9 MEQ/L (22.0-26.0); ABG O2 SATURATION 94.1 % (95.0-99.0); ABG PARTIAL PRESSURE CO2 32.5 mmHg (35.0-45.0); ABG PARTIAL PRESSURE O2 88.6 mmHg (75.0-100.0); ABG STANDARD HCO3 11.6 MEQ/L (22.0-26.0); ABG TOTAL CO2 11.9 MEQ/L (23.0-31.0)
[2017-12-10 11:41] LABS: ABG pH (ARTERIAL) 7.143 UNITS (7.350-7.450)
[2017-12-10 12:00] LABS: BEDSIDE GLUCOSE 119 MG/DL (80-115)
[2017-12-10] MEDS: NOREPINEPHRINE BITARTRATE 16 MG in D5W 484 ML IV ×2 (12:40→20:31)
[2017-12-10] MEDS: VASOPRESSIN INJ 40 UNITS in NS 498 ML IV (13:24)
[2017-12-10] MEDS: D5W IV (14:54)
[2017-12-10] MEDS: EPINEPHRINE HCL IV (14:54)
[2017-12-10 16:33] LABS: IONIZED CALCIUM 3.7 MG/DL (4.5-5.3)
[2017-12-10 16:50] LABS: ANION GAP 17 MEQ/L (8-16); BLOOD UREA NITROGEN 31 MG/DL (7-18); CALCIUM LEVEL 6.5 MG/DL (8.8-10.2); CARBON DIOXIDE LEVEL 14 MEQ/L (21-32); CHLORIDE LEVEL 103 MEQ/L (98-107); CREATININE FOR GFR 4.21 MG/DL (0.55-1.30); GLOMERULAR FILTRATION RATE 11.4 (>45); GLUCOSE, FASTING 104 MG/DL (70-100); PHOSPHORUS LEVEL 8.1 MG/DL (2.5-4.9); SODIUM LEVEL 134 MEQ/L (136-145)
[2017-12-10 17:22] LABS: POTASSIUM SERUM 5.5 MEQ/L (3.5-5.1)
[2017-12-10 17:26] LABS: HEMATOCRIT 32.7 % (36.0-47.0); HEMOGLOBIN 9.8 g/dl (12.0-15.5); MEAN CORPUSCULAR HEMOGLOBIN 30.7 pg (27.0-33.0); MEAN CORPUSCULAR VOLUME 102.5 fl (80.0-96.0); PLATELET COUNT, AUTOMATED 198 10^3/uL (150-450); RED BLOOD COUNT 3.19 10^6/uL (4.00-5.40)
[2017-12-10 18:10] LABS: BEDSIDE GLUCOSE 88 MG/DL (80-115)
[2017-12-10] MEDS ORDERED: VASOPRESSIN INJ 40 UNITS in NS 498 ML IV (19:00)
[2017-12-10 23:21] LABS: BEDSIDE GLUCOSE 49 MG/DL (80-115)
[2017-12-10] MEDS: DEXTROSE 50% 50 ML SYRINGE IV (23:24)
[2017-12-10 23:26] LABS: BEDSIDE GLUCOSE 38 MG/DL (80-115)
[2017-12-10 23:53] LABS: BEDSIDE GLUCOSE 101 MG/DL (80-115)
[2017-12-11 04:00] LABS: IONIZED CALCIUM 3.7 MG/DL (4.5-5.3)
[2017-12-11 04:17] LABS: HEMATOCRIT 33.4 % (36.0-47.0); HEMOGLOBIN 10.3 g/dl (12.0-15.5); MEAN CORPUSCULAR HEMOGLOBIN 30.9 pg (27.0-33.0); MEAN CORPUSCULAR HGB CONC 30.8 g/dl (32.0-36.5); MEAN CORPUSCULAR VOLUME 100.3 fl (80.0-96.0); PLATELET COUNT, AUTOMATED 181 10^3/uL (150-450); RED BLOOD COUNT 3.33 10^6/uL (4.00-5.40); RED CELL DISTRIBUTION WIDTH 15.2 % (11.5-14.5); WHITE BLOOD COUNT 10.1 10^3/uL (4.0-10.0)
[2017-12-11 04:18] LABS: ADD MANUAL DIFFER YES; DIFF SLIDE NUMBER 38; POSITIVE MORPH POS FLAG
[2017-12-11] MEDS: EPINEPHRINE HCL IV ×3 (04:28→23:58)
[2017-12-11] MEDS: D5W IV ×3 (04:28→23:58)
[2017-12-11 05:02] LABS: BANDS 2 % (< 11); EOSINOPHILS 3 % (0-5); LYMPHOCYTES 5 % (16-52); METAMYELOCYTES 4 % (0-0); MONOCYTES 8 % (0-8); NEUTROPHILS 78 % (35-75)
[2017-12-11 05:05] LABS: ALBUMIN 1.7 GM/DL (3.2-5.2); ALBUMIN/GLOBULIN RATIO 0.47 (1.00-1.93); ALKALINE PHOSPHATASE 82 U/L (45-117); ANION GAP 15 MEQ/L (8-16); BLOOD UREA NITROGEN 25 MG/DL (7-18); CALCIUM LEVEL 6.8 MG/DL (8.8-10.2); CARBON DIOXIDE LEVEL 16 MEQ/L (21-32); CHLORIDE LEVEL 102 MEQ/L (98-107); CHOLESTEROL LEVEL 68 MG/DL (< 200); GLOMERULAR FILTRATION RATE 12.4 (>45); GLUCOSE, FASTING 55 MG/DL (70-100); MAGNESIUM LEVEL 1.9 MG/DL (1.8-2.4); PHOSPHORUS LEVEL 7.5 MG/DL (2.5-4.9); PLATELET ESTIMATE NORMAL (NORMAL); SODIUM LEVEL 133 MEQ/L (136-145); TOTAL PROTEIN 5.3 GM/DL (6.4-8.2); TRIGLYCERIDES LEVEL 221 MG/DL (<150)
[2017-12-11] MEDS: LEVOTHYROXINE 150MCG TABLET (0.15MG) PO (05:05)
[2017-12-11] MEDS: HEPARIN SOD (PORCINE) 5000 UNITS/ML VIAL SC ×3 (05:05→21:36)
[2017-12-11 05:08] LABS: BURR CELLS 2+
[2017-12-11] MEDS: NOREPINEPHRINE BITARTRATE 16 MG in D5W 484 ML IV ×3 (05:23→23:57)
[2017-12-11 05:29] LABS: POTASSIUM SERUM 5.8 MEQ/L (3.5-5.1)
[2017-12-11 05:30] LABS: ALT/SGPT 1225 U/L (12-78); AST/SGOT 3716 U/L (7-37); LDH LACTATE DEHYDROGENASE 3207 U/L (84-246)
[2017-12-11] MEDS: DEXTROSE 50% 50 ML SYRINGE IV ×6 (05:32→16:26)
[2017-12-11] MEDS: HumaLOG INSULIN (NovoLOG) PER UNIT SC ×4 (06:00→23:57)
[2017-12-11 06:01] LABS: BEDSIDE GLUCOSE 44 MG/DL (80-115)
[2017-12-11 06:05] LABS: BEDSIDE GLUCOSE 75 MG/DL (80-115)
[2017-12-11 06:07] LABS: CPK CREATINE PHOSPHOKINASE 63395 U/L (26-192)
[2017-12-11] MEDS: VASOPRESSIN INJ 40 UNITS in NS 498 ML IV ×2 (06:09→18:48)
[2017-12-11] MEDS: PIPERACILLIN/TAZOBACTAM SOD 2.25 GM in D5W MINI-BAG PLUS 50 ML IV ×3 (06:09→22:24)
[2017-12-11 06:24] LABS: ABG BASE EXCESS -11.7 (-2.0-2.0); ABG HCO3 15.7 MEQ/L (22.0-26.0); ABG O2 SATURATION 96.5 % (95.0-99.0); ABG PARTIAL PRESSURE CO2 41.3 mmHg (35.0-45.0); ABG PARTIAL PRESSURE O2 98.2 mmHg (75.0-100.0); ABG STANDARD HCO3 15.2 MEQ/L (22.0-26.0); ABG TOTAL CO2 16.9 MEQ/L (23.0-31.0)
[2017-12-11 06:27] LABS: ABG pH (ARTERIAL) 7.197 UNITS (7.350-7.450)
[2017-12-11] MEDS: SENOKOT S TAB PO ×2 (09:00→20:26)
[2017-12-11] MEDS: PANTOPRAZOLE 40MG INJ (PROTONIX) (C9113) IV (09:40)
[2017-12-11] MEDS: ASPIRIN 325 MG TAB NG (09:41)
[2017-12-11 10:47] LABS: BEDSIDE GLUCOSE 25 MG/DL (80-115)
[2017-12-11 10:51] LABS: BEDSIDE GLUCOSE 17 MG/DL (80-115)
[2017-12-11 11:24] LABS: BEDSIDE GLUCOSE 52 MG/DL (80-115)
[2017-12-11 12:19] LABS: BEDSIDE GLUCOSE 53 MG/DL (80-115)
[2017-12-11 13:02] LABS: BEDSIDE GLUCOSE 62 MG/DL (80-115)
[2017-12-11 14:21] LABS: BEDSIDE GLUCOSE 34 MG/DL (80-115)
[2017-12-11 15:00] LABS: BEDSIDE GLUCOSE 49 MG/DL (80-115)
[2017-12-11] MEDS: D10W 1,000 ML IV (15:45)
[2017-12-11 15:49] LABS: BEDSIDE GLUCOSE 50 MG/DL (80-115)
[2017-12-11 16:41] LABS: HEMOGLOBIN 10.2 g/dl (12.0-15.5); MEAN CORPUSCULAR HEMOGLOBIN 30.9 pg (27.0-33.0); MEAN CORPUSCULAR HGB CONC 30.9 g/dl (32.0-36.5); PLATELET COUNT, AUTOMATED 147 10^3/uL (150-450); RED CELL DISTRIBUTION WIDTH 15.4 % (11.5-14.5); WHITE BLOOD COUNT 10.2 10^3/uL (4.0-10.0)
[2017-12-11 16:41] LABS: IONIZED CALCIUM 3.8 MG/DL (4.5-5.3)
[2017-12-11 16:49] LABS: BEDSIDE GLUCOSE 82 MG/DL (80-115)
[2017-12-11 17:03] LABS: ANION GAP 16 MEQ/L (8-16); BLOOD UREA NITROGEN 23 MG/DL (7-18); CALCIUM LEVEL 6.6 MG/DL (8.8-10.2); CARBON DIOXIDE LEVEL 17 MEQ/L (21-32); CHLORIDE LEVEL 100 MEQ/L (98-107); CREATININE FOR GFR 3.72 MG/DL (0.55-1.30); GLOMERULAR FILTRATION RATE 13.1 (>45); GLUCOSE, FASTING 80 MG/DL (70-100); MAGNESIUM LEVEL 2.1 MG/DL (1.8-2.4); PHOSPHORUS LEVEL 7.1 MG/DL (2.5-4.9); SODIUM LEVEL 133 MEQ/L (136-145)
[2017-12-11 17:10] LABS: ABG BASE EXCESS -12.2 (-2.0-2.0); ABG HCO3 14.1 MEQ/L (22.0-26.0); ABG PARTIAL PRESSURE CO2 33.2 mmHg (35.0-45.0); ABG PARTIAL PRESSURE O2 82.3 mmHg (75.0-100.0); ABG STANDARD HCO3 14.8 MEQ/L (22.0-26.0); ABG TOTAL CO2 15.1 MEQ/L (23.0-31.0)
[2017-12-11 17:11] LABS: ABG pH (ARTERIAL) 7.245 UNITS (7.350-7.450)
[2017-12-11 18:04] LABS: BEDSIDE GLUCOSE 80 MG/DL (80-115)
[2017-12-11] MEDS ORDERED: AMIODARONE HCL 150 MG/100 ML PREMIXED BAG (NEXTERONE) As Ordered (18:35)
[2017-12-11] MEDS: CALCIUM GLUCONATE 1,000 MG in D5W MINI-BAG PLUS 100 ML IV ×2 (18:47→19:48)
[2017-12-11] MEDS: AMIODARONE HCL 150 MG in APPROPRIATE DILUENT 1 EA IV (18:47)
[2017-12-11] MEDS: AMIODARONE HCL 360 MG in APPROPRIATE DILUENT 1 EA IV (18:57)
[2017-12-11] MEDS: SODIUM BICARBONATE 150 MEQ in D5W 1,000 ML IV (19:31)
[2017-12-11 21:09] LABS: BEDSIDE GLUCOSE 80 MG/DL (80-115)
[2017-12-11 23:29] LABS: BEDSIDE GLUCOSE 75 MG/DL (80-115)
[2017-12-12 02:51] LABS: BEDSIDE GLUCOSE 48 MG/DL (80-115)
[2017-12-12] MEDS: DEXTROSE 50% 50 ML SYRINGE IV ×3 (02:51→10:53)
[2017-12-12 03:35] LABS: BEDSIDE GLUCOSE 74 MG/DL (80-115)
[2017-12-12 04:04] LABS: HEMATOCRIT 34.5 % (36.0-47.0); HEMOGLOBIN 10.7 g/dl (12.0-15.5); MEAN CORPUSCULAR HEMOGLOBIN 30.7 pg (27.0-33.0); MEAN CORPUSCULAR VOLUME 99.1 fl (80.0-96.0); PLATELET COUNT, AUTOMATED 138 10^3/uL (150-450); RED BLOOD COUNT 3.48 10^6/uL (4.00-5.40); RED CELL DISTRIBUTION WIDTH 15.9 % (11.5-14.5); WHITE BLOOD COUNT 11.6 10^3/uL (4.0-10.0)
[2017-12-12 04:06] LABS: IONIZED CALCIUM 3.7 MG/DL (4.5-5.3)
[2017-12-12 04:24] LABS: ANION GAP 14 MEQ/L (8-16); BLOOD UREA NITROGEN 20 MG/DL (7-18); CALCIUM LEVEL 7.2 MG/DL (8.8-10.2); CARBON DIOXIDE LEVEL 18 MEQ/L (21-32); CHLORIDE LEVEL 98 MEQ/L (98-107); CREATININE FOR GFR 3.36 MG/DL (0.55-1.30); GLOMERULAR FILTRATION RATE 14.8 (>45); GLUCOSE, FASTING 107 MG/DL (70-100); MAGNESIUM LEVEL 2.2 MG/DL (1.8-2.4); PHOSPHORUS LEVEL 7.6 MG/DL (2.5-4.9); SODIUM LEVEL 130 MEQ/L (136-145)
[2017-12-12 04:42] LABS: POTASSIUM SERUM 6.3 MEQ/L (3.5-5.1)
[2017-12-12] MEDS: LEVOTHYROXINE 150MCG TABLET (0.15MG) PO (05:36)
[2017-12-12] MEDS: HEPARIN SOD (PORCINE) 5000 UNITS/ML VIAL SC ×3 (05:36→22:56)
[2017-12-12 05:37] LABS: BEDSIDE GLUCOSE 54 MG/DL (80-115)
[2017-12-12] MEDS: HumaLOG INSULIN (NovoLOG) PER UNIT SC ×4 (06:00→23:29)
[2017-12-12] MEDS: PIPERACILLIN/TAZOBACTAM SOD 2.25 GM in D5W MINI-BAG PLUS 50 ML IV ×3 (06:01→22:56)
[2017-12-12 06:08] LABS: BEDSIDE GLUCOSE 165 MG/DL (80-115)
[2017-12-12 06:16] LABS: ABG BASE EXCESS -8.9 (-2.0-2.0); ABG HCO3 16.8 MEQ/L (22.0-26.0); ABG PARTIAL PRESSURE O2 116.5 mmHg (75.0-100.0); ABG STANDARD HCO3 17.3 MEQ/L (22.0-26.0); ABG TOTAL CO2 17.9 MEQ/L (23.0-31.0); ABG pH (ARTERIAL) 7.288 UNITS (7.350-7.450)
[2017-12-12] MEDS: NOREPINEPHRINE BITARTRATE 16 MG in D5W 484 ML IV ×2 (08:03→20:16)
[2017-12-12 08:55] LABS: ALBUMIN 1.5 GM/DL (3.2-5.2); ALBUMIN/GLOBULIN RATIO 0.35 (1.00-1.93); ALKALINE PHOSPHATASE 178 U/L (45-117); ALT/SGPT 1500 U/L (12-78); BILIRUBIN,TOTAL 1.8 MG/DL (0.2-1.0); CHOLESTEROL LEVEL 83 MG/DL (< 200); LDH LACTATE DEHYDROGENASE 3222 U/L (84-246); TOTAL PROTEIN 5.8 GM/DL (6.4-8.2); TRIGLYCERIDES LEVEL 534 MG/DL (<150)
[2017-12-12] MEDS: SENOKOT S TAB PO ×2 (09:00→20:16)
[2017-12-12 09:18] LABS: AST/SGOT 3330 U/L (7-37)
[2017-12-12] MEDS: PANTOPRAZOLE 40MG INJ (PROTONIX) (C9113) IV (09:20)
[2017-12-12] MEDS: ASPIRIN 325 MG TAB NG (09:20)
[2017-12-12] MEDS: CALCIUM GLUCONATE 1,000 MG in D5W MINI-BAG PLUS 100 ML IV ×4 (09:21→19:00)
[2017-12-12 09:27] LABS: CPK CREATINE PHOSPHOKINASE 92000 U/L (26-192)
[2017-12-12 09:56] LABS: DIFF SLIDE NUMBER 40; POS COUNT POS FLAG; POSITIVE MORPH POS FLAG
[2017-12-12] MEDS: VASOPRESSIN INJ 40 UNITS in NS 498 ML IV (10:01)
[2017-12-12] MEDS: SODIUM BICARBONATE 150 MEQ in D5W 1,000 ML IV (10:02)
[2017-12-12 10:31] LABS: BEDSIDE GLUCOSE 54 MG/DL (80-115)
[2017-12-12 11:06] LABS: BANDS 5 % (< 11); BASOPHILS 1 % (0-4); EOSINOPHILS 3 % (0-5); LYMPHOCYTES 6 % (16-52); METAMYELOCYTES 3 % (0-0); MONOCYTES 12 % (0-8); MYELOCYTES 1 % (0-0); NEUTROPHILS 69 % (35-75); PLATELET ESTIMATE NORMAL (NORMAL)
[2017-12-12 11:07] LABS: BURR CELLS 2+; PLATELET CLUMPS SMALL AMT; TOXIC GRANULATION 3+
[2017-12-12 12:14] LABS: BEDSIDE GLUCOSE 90 MG/DL (80-115)
[2017-12-12 16:03] LABS: HEMOGLOBIN 10.7 g/dl (12.0-15.5); MEAN CORPUSCULAR HEMOGLOBIN 30.7 pg (27.0-33.0); MEAN CORPUSCULAR HGB CONC 31.5 g/dl (32.0-36.5); MEAN CORPUSCULAR VOLUME 97.7 fl (80.0-96.0); PLATELET COUNT, AUTOMATED 120 10^3/uL (150-450); RED BLOOD COUNT 3.48 10^6/uL (4.00-5.40); RED CELL DISTRIBUTION WIDTH 15.8 % (11.5-14.5); WHITE BLOOD COUNT 10.9 10^3/uL (4.0-10.0)
[2017-12-12 16:30] LABS: ANION GAP 15 MEQ/L (8-16); BLOOD UREA NITROGEN 18 MG/DL (7-18); CALCIUM LEVEL 7.3 MG/DL (8.8-10.2); CARBON DIOXIDE LEVEL 20 MEQ/L (21-32); CHLORIDE LEVEL 98 MEQ/L (98-107); CREATININE FOR GFR 2.94 MG/DL (0.55-1.30); GLOMERULAR FILTRATION RATE 17.2 (>45); GLUCOSE, FASTING 81 MG/DL (70-100); MAGNESIUM LEVEL 2.1 MG/DL (1.8-2.4); PHOSPHORUS LEVEL 6.9 MG/DL (2.5-4.9); SODIUM LEVEL 133 MEQ/L (136-145)
[2017-12-12 16:31] LABS: POTASSIUM SERUM 5.6 MEQ/L (3.5-5.1)
[2017-12-12] MEDS: EPINEPHRINE HCL IV (16:40)
[2017-12-12] MEDS: D5W IV (16:40)
[2017-12-12 17:31] LABS: BEDSIDE GLUCOSE 15 MG/DL (80-115)
[2017-12-12 17:34] LABS: BEDSIDE GLUCOSE 84 MG/DL (80-115)
[2017-12-12 23:22] LABS: BEDSIDE GLUCOSE 95 MG/DL (80-115)
[2017-12-13] MEDS: SODIUM BICARBONATE 150 MEQ in D5W 1,000 ML IV (00:38)
[2017-12-13] MEDS: VASOPRESSIN INJ 40 UNITS in NS 498 ML IV ×2 (00:38→16:41)
[2017-12-13] MEDS ORDERED: AMIODARONE HCL 150 MG/100 ML PREMIXED BAG (NEXTERONE) As Ordered (02:00)
[2017-12-13] MEDS: AMIODARONE HCL 150 MG in APPROPRIATE DILUENT 1 EA IV (02:00)
[2017-12-13 04:04] LABS: IONIZED CALCIUM 3.8 MG/DL (4.5-5.3)
[2017-12-13 04:07] LABS: HEMATOCRIT 33.3 % (36.0-47.0); HEMOGLOBIN 10.4 g/dl (12.0-15.5); MEAN CORPUSCULAR HEMOGLOBIN 30.2 pg (27.0-33.0); MEAN CORPUSCULAR HGB CONC 31.2 g/dl (32.0-36.5); MEAN CORPUSCULAR VOLUME 96.8 fl (80.0-96.0); PLATELET COUNT, AUTOMATED 113 10^3/uL (150-450); RED BLOOD COUNT 3.44 10^6/uL (4.00-5.40); WHITE BLOOD COUNT 12.6 10^3/uL (4.0-10.0)
[2017-12-13 04:08] LABS: POS COUNT POS FLAG; POSITIVE MORPH POS FLAG
[2017-12-13 04:09] LABS: ADD MANUAL DIFFER YES; DIFF SLIDE NUMBER 19
[2017-12-13 04:56] LABS: BANDS 2 % (< 11); EOSINOPHILS 1 % (0-5); LYMPHOCYTES 9 % (16-52); METAMYELOCYTES 1 % (0-0); MONOCYTES 6 % (0-8); NEUTROPHILS 81 % (35-75)
[2017-12-13 04:57] LABS: ALBUMIN 1.4 GM/DL (3.2-5.2); ALKALINE PHOSPHATASE 211 U/L (45-117); ALT/SGPT 1170 U/L (12-78); ANION GAP 13 MEQ/L (8-16); ANISOCYTOSIS 1+; BILIRUBIN,TOTAL 2.5 MG/DL (0.2-1.0); BLOOD UREA NITROGEN 18 MG/DL (7-18); CALCIUM LEVEL 7.4 MG/DL (8.8-10.2); CARBON DIOXIDE LEVEL 23 MEQ/L (21-32); CHLORIDE LEVEL 96 MEQ/L (98-107); CHOLESTEROL LEVEL 109 MG/DL (< 200); CREATININE FOR GFR 2.82 MG/DL (0.55-1.30); GLOMERULAR FILTRATION RATE 18.1 (>45); GLUCOSE, FASTING 80 MG/DL (70-100); LDH LACTATE DEHYDROGENASE 2239 U/L (84-246); PHOSPHORUS LEVEL 5.5 MG/DL (2.5-4.9); PLATELET ESTIMATE DECREASED (NORMAL); SODIUM LEVEL 132 MEQ/L (136-145); TOTAL PROTEIN 4.9 GM/DL (6.4-8.2); TOXIC GRANULATION 2+; TRIGLYCERIDES LEVEL 588 MG/DL (<150)
[2017-12-13 05:21] LABS: AST/SGOT 2443 U/L (7-37)
[2017-12-13 05:32] LABS: POTASSIUM SERUM 5.4 MEQ/L (3.5-5.1)
[2017-12-13] MEDS: HumaLOG INSULIN (NovoLOG) PER UNIT SC ×3 (05:37→17:33)
[2017-12-13 05:48] LABS: CPK CREATINE PHOSPHOKINASE 97937 U/L (26-192)
[2017-12-13] MEDS: PIPERACILLIN/TAZOBACTAM SOD 2.25 GM in D5W MINI-BAG PLUS 50 ML IV ×3 (06:07→21:54)
[2017-12-13] MEDS: HEPARIN SOD (PORCINE) 5000 UNITS/ML VIAL SC ×3 (06:07→21:53)
[2017-12-13] MEDS: LEVOTHYROXINE 150MCG TABLET (0.15MG) PO (06:08)
[2017-12-13 06:35] LABS: ABG pH (ARTERIAL) 7.327 UNITS (7.350-7.450)
[2017-12-13 06:36] LABS: ABG BASE EXCESS -6.6 (-2.0-2.0); ABG HCO3 18.7 MEQ/L (22.0-26.0); ABG O2 SATURATION 88.6 % (95.0-99.0); ABG PARTIAL PRESSURE CO2 36.5 mmHg (35.0-45.0); ABG PARTIAL PRESSURE O2 62.9 mmHg (75.0-100.0); ABG STANDARD HCO3 18.9 MEQ/L (22.0-26.0); ABG TOTAL CO2 19.8 MEQ/L (23.0-31.0)
[2017-12-13] MEDS: SENOKOT S TAB PO ×2 (08:24→21:00)
[2017-12-13] MEDS: ASPIRIN 325 MG TAB NG (08:32)
[2017-12-13] MEDS: PANTOPRAZOLE 40MG INJ (PROTONIX) (C9113) IV (08:32)
[2017-12-13] MEDS: NOREPINEPHRINE BITARTRATE 16 MG in D5W 484 ML IV ×4 (08:32→16:43)
[2017-12-13] MEDS: CALCIUM GLUCONATE 1,000 MG in D5W MINI-BAG PLUS 100 ML IV ×2 (10:23→11:06)
[2017-12-13 12:08] LABS: BEDSIDE GLUCOSE 115 MG/DL (80-115)
[2017-12-13] MEDS ORDERED: DIGOXIN INJ 0.5 MG/2 ML AMP (J1160) As Ordered (14:35)
[2017-12-13] MEDS: DIGOXIN INJ 0.5 MG/2 ML AMP (J1160) IV (14:39)
[2017-12-13 15:39] LABS: HEMATOCRIT 33.1 % (36.0-47.0); HEMOGLOBIN 10.4 g/dl (12.0-15.5); MEAN CORPUSCULAR HEMOGLOBIN 30.7 pg (27.0-33.0); MEAN CORPUSCULAR HGB CONC 31.4 g/dl (32.0-36.5); MEAN CORPUSCULAR VOLUME 97.6 fl (80.0-96.0); PLATELET COUNT, AUTOMATED 102 10^3/uL (150-450); RED BLOOD COUNT 3.39 10^6/uL (4.00-5.40)
[2017-12-13] MEDS: SODIUM ACETATE IV (15:39)
[2017-12-13] MEDS: SODIUM CHLORIDE IV (15:39)
[2017-12-13] MEDS: [UNRECOGNIZED DRUG - OTHER] IV (15:39)
[2017-12-13] MEDS: FAT EMULSION IV 20% 500 ML IV (15:39)
[2017-12-13 15:45] LABS: IONIZED CALCIUM 3.7 MG/DL (4.5-5.3)
[2017-12-13 15:59] LABS: ANION GAP 14 MEQ/L (8-16); BLOOD UREA NITROGEN 18 MG/DL (7-18); CALCIUM LEVEL 7.7 MG/DL (8.8-10.2); CARBON DIOXIDE LEVEL 21 MEQ/L (21-32); CHLORIDE LEVEL 98 MEQ/L (98-107); CREATININE FOR GFR 2.59 MG/DL (0.55-1.30); GLOMERULAR FILTRATION RATE 19.9 (>45); GLUCOSE, FASTING 111 MG/DL (70-100); MAGNESIUM LEVEL 2.1 MG/DL (1.8-2.4); PHOSPHORUS LEVEL 5.5 MG/DL (2.5-4.9); SODIUM LEVEL 133 MEQ/L (136-145)
[2017-12-13 16:03] LABS: POTASSIUM SERUM 5.3 MEQ/L (3.5-5.1)
[2017-12-13 23:57] LABS: BEDSIDE GLUCOSE 143 MG/DL (80-115)
[2017-12-13 23:57] LABS: BEDSIDE GLUCOSE 177 MG/DL (80-115)
[2017-12-14] MEDS: HumaLOG INSULIN (NovoLOG) PER UNIT SC ×5 (00:11→23:52)
[2017-12-14] MEDS: NOREPINEPHRINE BITARTRATE 16 MG in D5W 484 ML IV ×2 (02:32→13:53)
[2017-12-14 04:22] LABS: HEMATOCRIT 30.6 % (36.0-47.0); HEMOGLOBIN 9.7 g/dl (12.0-15.5); MEAN CORPUSCULAR HEMOGLOBIN 31.4 pg (27.0-33.0); MEAN CORPUSCULAR HGB CONC 31.7 g/dl (32.0-36.5); RED BLOOD COUNT 3.09 10^6/uL (4.00-5.40); RED CELL DISTRIBUTION WIDTH 16.4 % (11.5-14.5); WHITE BLOOD COUNT 15.7 10^3/uL (4.0-10.0)
[2017-12-14 04:28] LABS: PLATELET COUNT, AUTOMATED 90 10^3/uL (150-450); POS COUNT POS FLAG; POSITIVE MORPH POS FLAG
[2017-12-14 04:39] LABS: ADD MANUAL DIFFER YES; DIFF SLIDE NUMBER 31
[2017-12-14 04:52] LABS: BANDS 1 % (< 11); EOSINOPHILS 5 % (0-5); HYPOCHROMASIA 1+; LYMPHOCYTES 8 % (16-52); METAMYELOCYTES 4 % (0-0); MONOCYTES 8 % (0-8); MYELOCYTES 1 % (0-0); NEUTROPHILS 73 % (35-75); PLATELET ESTIMATE DECREASED (NORMAL); POLYCHROMASIA 1+
[2017-12-14 04:53] LABS: ANISOCYTOSIS 1+; TOXIC GRANULATION 1+; TOXIC VACUOLATION 1+
[2017-12-14 05:09] LABS: ALBUMIN 1.8 GM/DL (3.2-5.2); ALBUMIN/GLOBULIN RATIO 0.55 (1.00-1.93); ALKALINE PHOSPHATASE 209 U/L (45-117); ALT/SGPT 785 U/L (12-78); ANION GAP 14 MEQ/L (8-16); AST/SGOT 1932 U/L (7-37); BILIRUBIN,TOTAL 2.6 MG/DL (0.2-1.0); BLOOD UREA NITROGEN 22 MG/DL (7-18); CALCIUM LEVEL 7.1 MG/DL (8.8-10.2); CARBON DIOXIDE LEVEL 21 MEQ/L (21-32); CHLORIDE LEVEL 100 MEQ/L (98-107); CHOLESTEROL LEVEL 96 MG/DL (< 200); GLOMERULAR FILTRATION RATE 20.8 (>45); GLUCOSE, FASTING 204 MG/DL (70-100); LDH LACTATE DEHYDROGENASE 2089 U/L (84-246); MAGNESIUM LEVEL 2.2 MG/DL (1.8-2.4); PHOSPHORUS LEVEL 2.9 MG/DL (2.5-4.9); POTASSIUM SERUM 4.4 MEQ/L (3.5-5.1); SODIUM LEVEL 135 MEQ/L (136-145); TOTAL PROTEIN 5.1 GM/DL (6.4-8.2); TRIGLYCERIDES LEVEL 699 MG/DL (<150)
[2017-12-14] MEDS: CALCIUM GLUCONATE 1,000 MG in NS 100 ML IV ×2 (05:14→06:00)
[2017-12-14] MEDS: HEPARIN SOD (PORCINE) 5000 UNITS/ML VIAL SC ×3 (05:29→19:53)
[2017-12-14 05:44] LABS: CPK CREATINE PHOSPHOKINASE 88359 U/L (26-192)
[2017-12-14 05:45] LABS: ABG BASE EXCESS -3.9 (-2.0-2.0); ABG HCO3 20.6 MEQ/L (22.0-26.0); ABG O2 SATURATION 94.8 % (95.0-99.0); ABG PARTIAL PRESSURE CO2 35.1 mmHg (35.0-45.0); ABG PARTIAL PRESSURE O2 76.9 mmHg (75.0-100.0); ABG STANDARD HCO3 21.2 MEQ/L (22.0-26.0); ABG TOTAL CO2 21.7 MEQ/L (23.0-31.0); ABG pH (ARTERIAL) 7.386 UNITS (7.350-7.450)
[2017-12-14 05:57] LABS: IMMATURE PLATELET FRACTION % 16.3 % (0.0-9.6)
[2017-12-14] MEDS: DIGOXIN INJ 0.5 MG/2 ML AMP (J1160) IV (05:59)
[2017-12-14] MEDS: LEVOTHYROXINE 150MCG TABLET (0.15MG) PO (06:00)
[2017-12-14] MEDS: PIPERACILLIN/TAZOBACTAM SOD 2.25 GM in D5W MINI-BAG PLUS 50 ML IV ×3 (06:00→23:49)
[2017-12-14] MEDS: ASPIRIN 325 MG TAB NG (08:53)
[2017-12-14] MEDS: PANTOPRAZOLE 40MG INJ (PROTONIX) (C9113) IV (08:53)
[2017-12-14] MEDS: VASOPRESSIN INJ 40 UNITS in NS 498 ML IV (08:58)
[2017-12-14] MEDS: SENOKOT S TAB PO ×2 (09:00→19:53)
[2017-12-14] MEDS ORDERED: HEPARIN 1,000 UNITS/ML 10ML VIAL (FOR RADIOLOGY& DIALYSIS ONLY) IV (12:00)
[2017-12-14] MEDS ORDERED: SODIUM CHLORIDE 0.9% INJ 10 ML SYR IV (12:00)
[2017-12-14 16:35] LABS: HEMATOCRIT 28.8 % (36.0-47.0); HEMOGLOBIN 9.2 g/dl (12.0-15.5); MEAN CORPUSCULAR HEMOGLOBIN 31.2 pg (27.0-33.0); MEAN CORPUSCULAR HGB CONC 31.9 g/dl (32.0-36.5); MEAN CORPUSCULAR VOLUME 97.6 fl (80.0-96.0); RED BLOOD COUNT 2.95 10^6/uL (4.00-5.40); WHITE BLOOD COUNT 20.2 10^3/uL (4.0-10.0)
[2017-12-14 16:35] LABS: IONIZED CALCIUM 4.2 MG/DL (4.5-5.3)
[2017-12-14 16:40] LABS: PLATELET COUNT, AUTOMATED 78 10^3/uL (150-450)
[2017-12-14 17:06] LABS: ANION GAP 14 MEQ/L (8-16); BLOOD UREA NITROGEN 26 MG/DL (7-18); CALCIUM LEVEL 7.4 MG/DL (8.8-10.2); CARBON DIOXIDE LEVEL 19 MEQ/L (21-32); CHLORIDE LEVEL 101 MEQ/L (98-107); GLOMERULAR FILTRATION RATE 19.9 (>45); GLUCOSE, FASTING 252 MG/DL (70-100); MAGNESIUM LEVEL 2.3 MG/DL (1.8-2.4); PHOSPHORUS LEVEL 1.8 MG/DL (2.5-4.9); POTASSIUM SERUM 4.1 MEQ/L (3.5-5.1); SODIUM LEVEL 134 MEQ/L (136-145)
[2017-12-14] MEDS: [UNRECOGNIZED DRUG - OTHER] IV (18:28)
[2017-12-14] MEDS: SODIUM ACETATE IV (18:28)
[2017-12-14] MEDS: SODIUM CHLORIDE IV (18:28)
[2017-12-14] MEDS: FAT EMULSION IV 20% 500 ML IV (18:28)
[2017-12-14] MEDS: SODIUM PHOSPHATE INJ 15 MMOL in D5W 250 ML IV (18:43)
[2017-12-14] MEDS: CALCIUM GLUCONATE 1,000 MG in D5W MINI-BAG PLUS 100 ML IV ×2 (18:51→19:34)
[2017-12-15] MEDS: VASOPRESSIN INJ 40 UNITS in NS 498 ML IV ×2 (00:10→18:46)
[2017-12-15] MEDS: NOREPINEPHRINE BITARTRATE 16 MG in D5W 484 ML IV ×2 (01:44→16:02)
[2017-12-15 02:09] LABS: TYPE AND SCREEN 1 1
[2017-12-15] MEDS: HEPARIN SOD (PORCINE) 5000 UNITS/ML VIAL SC (02:30)
[2017-12-15 03:17] LABS: BEDSIDE GLUCOSE 296 MG/DL (80-115)
[2017-12-15 04:04] LABS: HEMATOCRIT 28.9 % (36.0-47.0); MEAN CORPUSCULAR HEMOGLOBIN 31.4 pg (27.0-33.0); MEAN CORPUSCULAR HGB CONC 31.1 g/dl (32.0-36.5); MEAN CORPUSCULAR VOLUME 100.7 fl (80.0-96.0); RED BLOOD COUNT 2.87 10^6/uL (4.00-5.40); RED CELL DISTRIBUTION WIDTH 17.2 % (11.5-14.5)
[2017-12-15 04:09] LABS: IONIZED CALCIUM 4.4 MG/DL (4.5-5.3)
[2017-12-15 04:28] LABS: ANION GAP 15 MEQ/L (8-16); BLOOD UREA NITROGEN 28 MG/DL (7-18); CALCIUM LEVEL 7.7 MG/DL (8.8-10.2); CARBON DIOXIDE LEVEL 20 MEQ/L (21-32); CHLORIDE LEVEL 101 MEQ/L (98-107); CREATININE FOR GFR 2.43 MG/DL (0.55-1.30); GLOMERULAR FILTRATION RATE 21.5 (>45); GLUCOSE, FASTING 289 MG/DL (70-100); MAGNESIUM LEVEL 2.2 MG/DL (1.8-2.4); PHOSPHORUS LEVEL 2.1 MG/DL (2.5-4.9); POTASSIUM SERUM 3.8 MEQ/L (3.5-5.1); SODIUM LEVEL 136 MEQ/L (136-145)
[2017-12-15 04:37] LABS: PLATELET COUNT, AUTOMATED 78 10^3/uL (150-450)
[2017-12-15] MEDS: KCL 20MEQ IN 100ML SWI (KRUN) 20 MEQ in APPROPRIATE DILUENT 1 EA IV ×2 (05:13→17:44)
[2017-12-15] MEDS: CALCIUM GLUCONATE 1,000 MG in NS 100 ML IV (05:14)
[2017-12-15] MEDS ORDERED: SODIUM PHOSPHATE INJ 15 MMOL in D5W 250 ML IV (05:30)
[2017-12-15] MEDS: LEVOTHYROXINE 150MCG TABLET (0.15MG) PO (05:37)
[2017-12-15] MEDS: HumaLOG INSULIN (NovoLOG) PER UNIT SC ×3 (05:38→17:44)
[2017-12-15] MEDS: PIPERACILLIN/TAZOBACTAM SOD 2.25 GM in D5W MINI-BAG PLUS 50 ML IV ×3 (06:27→23:09)
[2017-12-15] MEDS: SODIUM PHOSPHATE INJ 15 MMOL in D5W 250 ML IV (08:55)
[2017-12-15] MEDS: ASPIRIN 325 MG TAB NG (09:46)
[2017-12-15] MEDS: SENOKOT S TAB PO ×2 (09:46→21:29)
[2017-12-15] MEDS: PANTOPRAZOLE 40MG INJ (PROTONIX) (C9113) IV (09:47)
[2017-12-15 12:23] LABS: BEDSIDE GLUCOSE 242 MG/DL (80-115)
[2017-12-15 12:23] LABS: BEDSIDE GLUCOSE 251 MG/DL (80-115)
[2017-12-15 12:23] LABS: BEDSIDE GLUCOSE 347 MG/DL (80-115)
[2017-12-15] MEDS ORDERED: LIDOCAINE 1% MDV 20ML VIAL As Ordered (13:00)
[2017-12-15 15:50] LABS: HEMATOCRIT 28.9 % (36.0-47.0); HEMOGLOBIN 9.1 g/dl (12.0-15.5); MEAN CORPUSCULAR HEMOGLOBIN 31.3 pg (27.0-33.0); MEAN CORPUSCULAR HGB CONC 31.5 g/dl (32.0-36.5); MEAN CORPUSCULAR VOLUME 99.3 fl (80.0-96.0); RED BLOOD COUNT 2.91 10^6/uL (4.00-5.40); RED CELL DISTRIBUTION WIDTH 17.4 % (11.5-14.5); WHITE BLOOD COUNT 24.3 10^3/uL (4.0-10.0)
[2017-12-15 15:51] LABS: PLATELET COUNT, AUTOMATED 77 10^3/uL (150-450)
[2017-12-15 15:52] LABS: IMMATURE PLATELET FRACTION % 22.2 % (0.0-9.6)
[2017-12-15 16:17] LABS: ANION GAP 16 MEQ/L (8-16); BLOOD UREA NITROGEN 29 MG/DL (7-18); CALCIUM LEVEL 8.3 MG/DL (8.8-10.2); CARBON DIOXIDE LEVEL 18 MEQ/L (21-32); CHLORIDE LEVEL 100 MEQ/L (98-107); CREATININE FOR GFR 2.37 MG/DL (0.55-1.30); GLOMERULAR FILTRATION RATE 22.1 (>45); GLUCOSE, FASTING 342 MG/DL (70-100); MAGNESIUM LEVEL 2.4 MG/DL (1.8-2.4); POTASSIUM SERUM 3.7 MEQ/L (3.5-5.1); SODIUM LEVEL 134 MEQ/L (136-145)
[2017-12-15 17:13] LABS: IONIZED CALCIUM 4.5 MG/DL (4.5-5.3)
[2017-12-15] MEDS ORDERED: SODIUM CHLORIDE 0.9% INJ 10 ML SYR IV (17:30)
[2017-12-15] MEDS: CALCIUM GLUCONATE 1,000 MG in NS MINI-BAG PLUS 100 ML IV (17:43)
[2017-12-15] MEDS: FAT EMULSION IV 20% 500 ML IV (17:46)
[2017-12-15] MEDS: SODIUM CHLORIDE 0.9% INJ 10 ML SYR IV (17:46)
[2017-12-15] MEDS ORDERED: POTASSIUM PHOSPHATE INJ 30 MMOL in D5W 250 ML IV (18:00)
[2017-12-15] MEDS: [UNRECOGNIZED DRUG - OTHER] IV (18:45)
[2017-12-15] MEDS: SODIUM CHLORIDE IV (18:45)
[2017-12-15] MEDS: SODIUM ACETATE IV (18:45)
[2017-12-15] MEDS: POTASSIUM PHOSPHATE INJ 30 MMOL in D5W 250 ML IV (21:29)
[2017-12-16] MEDS: HumaLOG INSULIN (NovoLOG) PER UNIT SC ×4 (00:23→17:39)
[2017-12-16 00:28] LABS: BEDSIDE GLUCOSE 371 MG/DL (80-115)
[2017-12-16 04:38] LABS: IONIZED CALCIUM 4.5 MG/DL (4.5-5.3)
[2017-12-16 04:56] LABS: HEMATOCRIT 29.2 % (36.0-47.0); HEMOGLOBIN 9.1 g/dl (12.0-15.5); MEAN CORPUSCULAR HEMOGLOBIN 31.6 pg (27.0-33.0); MEAN CORPUSCULAR HGB CONC 31.2 g/dl (32.0-36.5); MEAN CORPUSCULAR VOLUME 101.4 fl (80.0-96.0); RED BLOOD COUNT 2.88 10^6/uL (4.00-5.40); RED CELL DISTRIBUTION WIDTH 17.8 % (11.5-14.5); WHITE BLOOD COUNT 24.1 10^3/uL (4.0-10.0)
[2017-12-16 04:58] LABS: PLATELET COUNT, AUTOMATED 90 10^3/uL (150-450)
[2017-12-16 05:05] LABS: ANION GAP 16 MEQ/L (8-16); BLOOD UREA NITROGEN 34 MG/DL (7-18); CALCIUM LEVEL 7.8 MG/DL (8.8-10.2); CARBON DIOXIDE LEVEL 19 MEQ/L (21-32); CHLORIDE LEVEL 101 MEQ/L (98-107); CREATININE FOR GFR 2.32 MG/DL (0.55-1.30); GLOMERULAR FILTRATION RATE 22.6 (>45); GLUCOSE, FASTING 383 MG/DL (70-100); MAGNESIUM LEVEL 2.2 MG/DL (1.8-2.4); PHOSPHORUS LEVEL 3.3 MG/DL (2.5-4.9); POTASSIUM SERUM 4.7 MEQ/L (3.5-5.1); SODIUM LEVEL 136 MEQ/L (136-145)
[2017-12-16 05:09] LABS: ALBUMIN 1.7 GM/DL (3.2-5.2); ALBUMIN/GLOBULIN RATIO 0.45 (1.00-1.93); ALKALINE PHOSPHATASE 189 U/L (45-117); ALT/SGPT 393 U/L (12-78); AST/SGOT 785 U/L (7-37); BILIRUBIN,DIRECT 2.3 MG/DL (0.0-0.2); BILIRUBIN,TOTAL 2.8 MG/DL (0.2-1.0); TOTAL PROTEIN 5.5 GM/DL (6.4-8.2)
[2017-12-16] MEDS: SODIUM CHLORIDE 0.9% INJ 10 ML SYR IV ×2 (05:46→18:09)
[2017-12-16] MEDS: LEVOTHYROXINE 150MCG TABLET (0.15MG) PO (05:53)
[2017-12-16 05:55] LABS: BEDSIDE GLUCOSE 386 MG/DL (80-115)
[2017-12-16 05:57] LABS: ABG BASE EXCESS -5.9 (-2.0-2.0); ABG HCO3 20.7 MEQ/L (22.0-26.0); ABG PARTIAL PRESSURE CO2 45.7 mmHg (35.0-45.0); ABG PARTIAL PRESSURE O2 78.1 mmHg (75.0-100.0); ABG STANDARD HCO3 19.5 MEQ/L (22.0-26.0); ABG TOTAL CO2 22.1 MEQ/L (23.0-31.0); ABG pH (ARTERIAL) 7.273 UNITS (7.350-7.450)
[2017-12-16] MEDS: PIPERACILLIN/TAZOBACTAM SOD 2.25 GM in D5W MINI-BAG PLUS 50 ML IV ×3 (06:20→22:53)
[2017-12-16] MEDS: CALCIUM GLUCONATE 1,000 MG in D5W MINI-BAG PLUS 100 ML IV ×2 (06:44→18:28)
[2017-12-16] MEDS: SENOKOT S TAB PO ×2 (09:00→20:54)
[2017-12-16] MEDS: VASOPRESSIN INJ 40 UNITS in NS 498 ML IV ×2 (09:33→16:30)
[2017-12-16] MEDS: PANTOPRAZOLE 40MG INJ (PROTONIX) (C9113) IV (09:34)
[2017-12-16] MEDS: ASPIRIN 325 MG TAB NG (09:34)
[2017-12-16] MEDS: NOREPINEPHRINE BITARTRATE 16 MG in D5W 484 ML IV ×2 (10:25→16:30)
[2017-12-16 10:32] LABS: ABG BASE EXCESS -6.4 (-2.0-2.0); ABG HCO3 20.1 MEQ/L (22.0-26.0); ABG O2 SATURATION 93.7 % (95.0-99.0); ABG PARTIAL PRESSURE CO2 44.3 mmHg (35.0-45.0); ABG PARTIAL PRESSURE O2 72.4 mmHg (75.0-100.0); ABG STANDARD HCO3 19.2 MEQ/L (22.0-26.0); ABG TOTAL CO2 21.5 MEQ/L (23.0-31.0); ABG pH (ARTERIAL) 7.275 UNITS (7.350-7.450)
[2017-12-16] MEDS ORDERED: HEPARIN 1,000 UNITS/ML 10ML VIAL (FOR RADIOLOGY& DIALYSIS ONLY) IV (11:00)
[2017-12-16] MEDS ORDERED: SODIUM CHLORIDE 0.9% INJ 10 ML SYR IV (11:00)
[2017-12-16 12:40] LABS: BEDSIDE GLUCOSE 416 MG/DL (80-115)
[2017-12-16 16:32] LABS: IONIZED CALCIUM 4.6 MG/DL (4.5-5.3)
[2017-12-16 16:44] LABS: HEMATOCRIT 29.6 % (36.0-47.0); HEMOGLOBIN 9.1 g/dl (12.0-15.5); MEAN CORPUSCULAR HEMOGLOBIN 31.5 pg (27.0-33.0); MEAN CORPUSCULAR HGB CONC 30.7 g/dl (32.0-36.5); MEAN CORPUSCULAR VOLUME 102.4 fl (80.0-96.0); RED BLOOD COUNT 2.89 10^6/uL (4.00-5.40); RED CELL DISTRIBUTION WIDTH 18.4 % (11.5-14.5); WHITE BLOOD COUNT 26.6 10^3/uL (4.0-10.0)
[2017-12-16 16:51] LABS: ANION GAP 14 MEQ/L (8-16); BLOOD UREA NITROGEN 39 MG/DL (7-18); CARBON DIOXIDE LEVEL 20 MEQ/L (21-32); CHLORIDE LEVEL 102 MEQ/L (98-107); CREATININE FOR GFR 2.36 MG/DL (0.55-1.30); GLOMERULAR FILTRATION RATE 22.2 (>45); MAGNESIUM LEVEL 2.2 MG/DL (1.8-2.4); PHOSPHORUS LEVEL 2.6 MG/DL (2.5-4.9); POTASSIUM SERUM 4.4 MEQ/L (3.5-5.1); SODIUM LEVEL 136 MEQ/L (136-145)
[2017-12-16 16:54] LABS: PLATELET COUNT, AUTOMATED 93 10^3/uL (150-450)
[2017-12-16 17:29] LABS: GLUCOSE, FASTING 411 MG/DL (70-100)
[2017-12-16 17:57] LABS: BEDSIDE GLUCOSE 278 MG/DL (80-115)
[2017-12-16 18:01] LABS: IMMATURE PLATELET FRACTION % 24.6 % (0.0-9.6)
[2017-12-16] MEDS: SODIUM ACETATE IV (18:08)
[2017-12-16] MEDS: FAT EMULSION IV 20% 500 ML IV (18:08)
[2017-12-16] MEDS: SODIUM CHLORIDE IV (18:08)
[2017-12-16] MEDS: [UNRECOGNIZED DRUG - OTHER] IV (18:08)
[2017-12-16] MEDS: ACETAMINOPHEN TAB 650MG DOSE (2X325MG) PO (23:02)
[2017-12-16 23:33] LABS: BEDSIDE GLUCOSE 364 MG/DL (80-115)
[2017-12-17 00:07] LABS: HEPARIN INDUCED PLATELET ABY 0.077 OD (0.000-0.400)
[2017-12-17 12:40] LABS: iSTAT CA++ 3.8 MG/DL (4.5-5.3)
== END 2017-12-16 23:49 | disposition expired | DRG 710 ==
LOC: M ED 03:37 → M SDC 07:15 → M OR 07:16 → M ICU 13:15
PROVIDERS: Surgery
PROC: 0DB80ZZ Excision of Small Intestine, Open Approach (ICD-10-PCS; principal; 2017-12-09 07:58)
PROC: 02H633Z Insertion of Infusion Device into Right Atrium, Percutaneous Approach (ICD-10-PCS; 2017-12-09 07:58)
PROC: 5A1955Z Respiratory Ventilation, Greater than 96 Consecutive Hours (ICD-10-PCS; 2017-12-09 07:58)
PROC: 0T9780Z Drainage of Left Ureter with Drainage Device, Via Natural or Artificial Opening Endoscopic (ICD-10-PCS; 2017-12-09 07:58)
PROC: 5A1D90Z Performance of Urinary Filtration, Continuous, Greater than 18 hours Per Day (ICD-10-PCS; 2017-12-09 07:58)
PROC: 02HV33Z Insertion of Infusion Device into Superior Vena Cava, Percutaneous Approach (ICD-10-PCS; 2017-12-09 07:58)
PROC: 30243J1 Transfusion of Nonautologous Serum Albumin into Central Vein, Percutaneous Approach (ICD-10-PCS; 2017-12-09 07:58)
DX: A41.9 Sepsis, unspecified organism (principal); K55.019 Acute (reversible) ischemia of small intestine, extent unspecified; K72.01 Acute and subacute hepatic failure with coma; I21.9 Acute myocardial infarction, unspecified; J96.01 Acute respiratory failure with hypoxia; R40.20 Unspecified coma; K43.0 Incisional hernia with obstruction, without gangrene; I47.2 Ventricular tachycardia; N18.4 Chronic kidney disease, stage 4 (severe); R65.21 Severe sepsis with septic shock; G93.41 Metabolic encephalopathy; N17.9 Acute kidney failure, unspecified; E87.2 Acidosis; D69.6 Thrombocytopenia, unspecified; E87.8 Other disorders of electrolyte and fluid balance, not elsewhere classified; E11.649 Type 2 diabetes mellitus with hypoglycemia without coma; E87.5 Hyperkalemia; I48.91 Unspecified atrial fibrillation; E66.01 Morbid (severe) obesity due to excess calories; Z68.41 Body mass index [BMI] 40.0-44.9, adult; Z66 Do not resuscitate; N13.6 Pyonephrosis; I25.10 Atherosclerotic heart disease of native coronary artery without angina pectoris; D64.9 Anemia, unspecified; I12.9 Hypertensive chronic kidney disease with stage 1 through stage 4 chronic kidney disease, or unspecified chronic kidney disease; E78.5 Hyperlipidemia, unspecified; E03.9 Hypothyroidism, unspecified; E78.00 Pure hypercholesterolemia, unspecified; J30.2 Other seasonal allergic rhinitis; Z90.49 Acquired absence of other specified parts of digestive tract; Z79.82 Long term (current) use of aspirin; Z79.4 Long term (current) use of insulin; Z79.899 Other long term (current) drug therapy; Z87.891 Personal history of nicotine dependence